=== PATIENT | female | born 1980 | race African-American/Black ===

== ENCOUNTER 2018-08-10 17:21 | Emergency (ER) | payer BC ==
--- NOTE | 2018-08-10 19:38 | ER Document Report ---
HPI - HPI Patient complains to provider of: vaginal itching Time Seen by Provider: 08/10/18 19:22 Pain Level: 5 Context: Patient is a 38-year-old female presents to the emergency department complaining of vaginal itching and discharge for the last week. Patient states she is a diabetic and typically gets yeast infections and has had bacterial vaginosis in the past. Patient states she tried Monistat [id number] with no relief. Patient states the last 2 days her discharge has been green and malodorous. Patient states she has also had unprotected sexual intercourse and would like to be tested for Gonorrhea and chlamydia. Patient's last menstrual period was July 16. Past medical history: Diabetes Medication: Metformin Allergies: Sulfa - REPRODUCTIVE Reproductive: DENIES: : Past Medical History - General Information source: Patient - Social History Smoking Status: Unknown if Ever Smoked Family History: Arthritis, CAD, CVA, DM, Hyperlipidemia, Hypertension, Malignancy, Thyroid Disfunction, Other - renal failure - Past Medical History Cardiac Medical History: Reports: Hx Hypertension Endocrine Medical History: Reports: Hx Diabetes Mellitus Type 2 Past Surgical History: Reports: Hx Section - Immunizations Immunizations up to date: No Hx Diphtheria, Pertussis, Tetanus Vaccination: No Vertical Provider Document - CONSTITUTIONAL Agree With Documented VS: Yes Notes: GENERAL: Alert, interacts well. No acute distress. HEAD: Normocephalic, atraumatic. EYES: Pupils equal, round, and reactive to light. Extraocular movements intact. ENT: Oral mucosa moist, tongue midline. NECK: Full range of motion. Supple. Trachea midline. LUNGS: Clear to auscultation bilaterally, no wheezes, rales, or rhonchi. No respiratory distress. HEART: Regular rate and rhythm. No murmur ABDOMEN: Obese soft, non-tender. Non-distended. Bowel sounds present in all 4 quadrants. No suprapubic abdominal tenderness EXTREMITIES: Moves all 4 extremities spontaneously. No edema, normal radial and dorsalis pedis pulses bilaterally. No cyanosis. BACK: no cervical, thoracic, lumbar midline tenderness. No saddle anesthesia, normal distal neurovascular exam. No CVA tenderness bilaterally NEUROLOGICAL: Alert and oriented x3. Normal speech. cranial nerves II through XII grossly intact PSYCH: Normal affect, normal mood. SKIN: Warm, dry, normal turgor. No rashes or lesions noted. - INFECTION CONTROL TRAVEL OUTSIDE OF THE [place] IN LAST 30 DAYS: No Course - Re-evaluation Re-evalutation: Wet mount revealed bacterial vaginosis and yeast. Patient was prophylactically treated for gonorrhea and chlamydia in the emergency room. No trichomonas noted on wet mount. Patient's pelvic exam revealed white cottage cheese discharge in the cul-de-sac with a slight green tinge. Patient had no cervical motion tenderness no adnexal tenderness bilaterally. Vital signs reviewed, nursing notes reviewed, patient stable for discharge. - Vital Signs Vital signs: Temp Pulse Resp BP Pulse Ox 99.2 F 91 16 140/75 H 98 08/10/18 17:28 08/10/18 17:28 08/10/18 17:28 08/10/18 17:28 08/10/18 17:28 Discharge - Discharge Clinical Impression: Bacterial vaginosis, Yeast infection involving the vagina and surrounding area Condition: Stable Disposition: HOME, SELF-CARE Instructions: Vaginosis, Bacterial ([facility]), Vaginal Yeast Infection ([facility]) Additional Instructions: As we discussed your test came back positive for yeast and bacterial vaginosis. You were prophylactically treated in the emergency room for gonorrhea and chlamydia. You can call medical records to get your results of those tests. We have given you a one-time dose of Diflucan in the emergency room to treat your yeast infection. Unfortunately the metronidazole which is the medicine that treats bacterial vaginosis may give you another yeast infection. I am going to give you a one-time dose of Diflucan to take at the end of your metronidazole course. Please refrain from sexual intercourse or drinking alcohol while taking metronidazole. Please follow-up with your primary care provider in the next 24- 48 hours. Please return to the emergency room should you have any abdominal pain, nausea, vomiting or any other concerning symptoms. Prescriptions: Fluconazole [Diflucan] 150 mg PO ONCE PRN #1 tablet PRN Reason: Metronidazole [Flagyl 500 mg Tablet] 500 mg PO BID #14 tablet Forms: Elevated Blood Pressure
[2018-08-10 20:43] LABS: APPEARANCE,URINE CLEAR; BACTERIA (WET MOUNT) 4+ BACTERIA SEEN; BILIRUBIN,URINE NEGATIVE (NEGATIVE); COLOR,URINE STRAW; GLUCOSE, URINE >=500 mg/dL (NEGATIVE); KETONES,URINE NEGATIVE (NEGATIVE); LEUKOCYTE ESTERASE,URINE MODERATE (NEGATIVE); NITRITE,URINE NEGATIVE (NEGATIVE); PROTEIN,URINE NEGATIVE (NEGATIVE); T.VAGINALIS (WET MOUNT) NO TRICHOMONAS SEEN; URINE SPECIFIC GRAVITY 1.033; UROBILINOGEN,URINE NEGATIVE mg/dL (<2.0); WBCS (WET MOUNT) 4+ WBCS SEEN; YEAST (WET MOUNT) BUDDING YEAST SEEN
[2018-08-10] MEDS ORDERED: AZITHROMYCIN 250 MG TABLET PO ONE (21:14)
[2018-08-10] MEDS ORDERED: LIDOCAINE 1% INJ-PF (10 MG/ML) 30 ML SDV INJ ONE (21:15)
[2018-08-10] MEDS ORDERED: CEFTRIAXONE INJ 250 MG VIAL IM ONE (21:15)
[2018-08-10] MEDS ORDERED: FLUCONAZOLE 100 MG TABLET PO ONE (21:19)
[2018-08-10 21:38] VITALS: BP 139/87
[2018-08-10 22:10] LABS: CHLAM PCR NOT DETECTED (NOT DETECT); GON PCR NOT DETECTED (NOT DETECT)
== END 2018-08-10 21:38 | disposition home or self-care (01) ==
LOC: ER 17:21
DX: B37.3 Candidiasis of vulva and vagina (principal); N76.0 Acute vaginitis; B96.89 Other specified bacterial agents as the cause of diseases classified elsewhere; E11.9 Type 2 diabetes mellitus without complications; I10 Essential (primary) hypertension; Z79.84 Long term (current) use of oral hypoglycemic drugs; Z20.2 Contact with and (suspected) exposure to infections with a predominantly sexual mode of transmission; Z88.2 Allergy status to sulfonamides
CPT/HCPCS: 99283; 96372; 87210; 81025; 81001; 87491; 87591; J3490; J0696

== ENCOUNTER 2019-02-08 09:06 | Emergency (ER) | payer BC ==
--- NOTE | 2019-02-08 10:42 | ER Document Report ---
HPI - HPI Patient complains to provider of: right thigh pain, urgency to void Time Seen by Provider: 02/08/19 10:00 Onset: Other - 3 days Onset/Duration: Sudden Quality of pain: Achy Severity: Severe Pain Level: 5 Context: Patient presents emergency department with complaints of urgency to void and pain on her right thigh. Reports she can barely lift her thigh due to the pain. Reports she took Motrin 8:00 this morning did not help. Denies trauma. Denies other symptoms such as fever vomiting diarrhea. Denies past medical history of injury to the thigh. Denies recent exercise. 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 Patient does admit to getting new shoes which could possibly of irritated her leg. Ports urgency to void for the past 3 days. No other complaints such as vaginal discharge, frequency or pain with void. Reports she is a diabetic but does not take medications at the current time. She has made an appointment with Dr. Isabel for evaluation. Associated Symptoms: None Exacerbated by: Movement Relieved by: Denies Similar symptoms previously: No Recently seen / treated by doctor: No - CONSTITUTIONAL Constitutional: DENIES: Fever, Chills - URINARY Urinary: REPORTS: Dysuria, Urgency, Frequency - REPRODUCTIVE Reproductive: DENIES: : Past Medical History - General Information source: Patient Last Menstrual Period: 01/20/19 - Social History Smoking Status: Current Some Day Smoker Frequency of alcohol use: Occasional Drug Abuse: None Occupation: cook at the [employer] Family History: Arthritis, CAD, CVA, DM, Hyperlipidemia, Hypertension, Malignancy, Thyroid Disfunction, Other - renal failure Patient has suicidal ideation: No Patient has homicidal ideation: No - Past Medical History Cardiac Medical History: Reports: Hx Hypertension Endocrine Medical History: Reports: Hx Diabetes Mellitus Type 2 Renal/ Medical History: Denies: Hx Peritoneal Dialysis Past Surgical History: Reports: Hx Section - Immunizations Immunizations up to date: No Hx Diphtheria, Pertussis, Tetanus Vaccination: No Vertical Provider Document - CONSTITUTIONAL Agree With Documented VS: Yes Exam Limitations: No Limitations General Appearance: WD/WN, No Apparent Distress - nontoxic looking - INFECTION CONTROL TRAVEL OUTSIDE OF THE [place] IN LAST 30 DAYS: No - HEENT HEENT: Atraumatic, Normocephalic - NECK Neck: Normal Inspection, Supple - RESPIRATORY Respiratory: Breath Sounds Normal, No Respiratory Distress - CARDIOVASCULAR Cardiovascular: Regular Rate - GI/ABDOMEN Gastrointestinal: Abdomen Soft, Abdomen Non-Tender - MUSCULOSKELETAL/EXTREMETIES Musculoskeletal/Extremeties: MAEW, FROM, Tender - right thigh laterally ttp, no hip pain no erythema no swelling no warmth no signs of infection no obvious deformity ambulates without problems. - NEURO Level of Consciousness: Awake, Alert, Appropriate Motor/Sensory: No Motor Deficit - DERM Integumentary: Warm, Dry Adult Front & Back Diagram: 1 - reports pain with movement Course - Re-evaluation Re-evalutation: 02/08/19 11:10 UA with large amount of leukocytes will treat for UTI. Patient was instructed on the importance of keeping her appointment with Dr. castano as a primary care provider so he can treat her diabetes and recheck her urine. Verbalized understanding. Dictation of this chart was performed using voice recognition software; therefore, there may be some unintended grammatical errors. - Vital Signs Vital signs: Temp Pulse Resp BP Pulse Ox 98.1 F 93 13 137/74 H 98 02/08/19 09:20 02/08/19 09:20 02/08/19 09:20 02/08/19 09:20 02/08/19 09:20 Discharge - Discharge Clinical Impression: thigh muscle pain UTI (urinary tract infection) Qualifiers: Urinary tract infection type: site unspecified Hematuria presence: without hematuria Qualified Code(s): N39.0 - Urinary tract infection, site not specified Condition: Stable Disposition: HOME, SELF-CARE Instructions: Cephalexin ([facility]), Use of [id number] Ibuprofen ([facility]), Urinary Tract Infection ([facility]) Additional Instructions: *You have been evaluated for urgency voiding, UTI, right thigh muscle pain *Take medication as prescribed *Push fluids *Follow up with dr isabel as scheduled *Return to ED for worsening condition, changes, needs, increased pain fever Prescriptions: Cephalexin Monohydrate [Keflex 250 Mg Capsule] 250 mg PO QID #20 capsule Forms: Elevated Blood Pressure, Return to Work
[2019-02-08 10:54] LABS: APPEARANCE,URINE SLIGHTLY-CLOUDY; BILIRUBIN,URINE NEGATIVE (NEGATIVE); COLOR,URINE STRAW; GLUCOSE, URINE >=500 mg/dL (NEGATIVE); KETONES,URINE NEGATIVE (NEGATIVE); LEUKOCYTE ESTERASE,URINE MODERATE (NEGATIVE); NITRITE,URINE NEGATIVE (NEGATIVE); PROTEIN,URINE NEGATIVE (NEGATIVE); URINE SPECIFIC GRAVITY 1.033; UROBILINOGEN,URINE NEGATIVE mg/dL (<2.0)
[2019-02-08 12:22] VITALS: BP 124/77
== END 2019-02-08 11:28 | disposition home or self-care (01) ==
LOC: ER 09:06
DX: M79.651 Pain in right thigh (principal); N39.0 Urinary tract infection, site not specified; F17.200 Nicotine dependence, unspecified, uncomplicated; I10 Essential (primary) hypertension; E11.9 Type 2 diabetes mellitus without complications
CPT/HCPCS: 81001; 99283

== ENCOUNTER 2020-01-06 12:30 | Emergency (ER) | payer BC ==
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
[2020-01-06 13:23] LABS: APPEARANCE,URINE CLOUDY; BILIRUBIN,URINE NEGATIVE (NEGATIVE); COLOR,URINE YELLOW; GLUCOSE, URINE >=500 mg/dL (NEGATIVE); KETONES,URINE NEGATIVE (NEGATIVE); LEUKOCYTE ESTERASE,URINE MODERATE (NEGATIVE); NITRITE,URINE NEGATIVE (NEGATIVE); PROTEIN,URINE 30 mg/dL (NEGATIVE); URINE SPECIFIC GRAVITY 1.022; UROBILINOGEN,URINE NEGATIVE mg/dL (<2.0)
[2020-01-06 13:50] LABS: BACTERIA (WET MOUNT) 4+ BACTERIA SEEN; EPITHELIALS (WET MOUNT) 3+ EPITHELIALS SEEN; T.VAGINALIS (WET MOUNT) NO TRICHOMONAS SEEN; WBCS (WET MOUNT) FEW WBCS SEEN; YEAST (WET MOUNT) NO YEAST SEEN
[2020-01-06 15:03] VITALS: BP 135/89
[2020-01-06 16:47] LABS: CHLAM PCR NOT DETECTED (NOT DETECT)
== END 2020-01-06 15:04 | disposition home or self-care (01) ==
LOC: ER 12:30
DX: N39.0 Urinary tract infection, site not specified (principal); N89.8 Other specified noninflammatory disorders of vagina; E11.9 Type 2 diabetes mellitus without complications; I10 Essential (primary) hypertension
CPT/HCPCS: 81001; 81025; 87070; 87086; 87088; 87186; 87205; 87210; 87491; 87591; 99283

== ENCOUNTER 2020-06-11 18:09 | Emergency (ER) | payer BC ==
[2020-06-11] MEDS ORDERED: ACETAMINOPHEN 325 MG TABLET PO ONE (19:24)
--- NOTE | 2020-06-11 19:24 | ER Document Report ---
ED Medical Screen (RME) - General Chief Complaint: Pain All Over Stated Complaint: BODY ACHES,SHAKY,NAUSEA Time Seen by Provider: 06/11/20 19:22 Mode of Arrival: Ambulatory Information source: Patient Notes: HPI; 39-year-old female presents to the emergency room complaining of general body aches, fever of 100, and a decreased appetite for the past 3 days. She denies any nausea, vomiting, diarrhea, no shortness of breath, no difficulty breathing. No recent travel. No COVID-19 exposure. PE: Alert and oriented x3. Lungs diminished in the bases, no rales no rhonchi. Heart: Tachycardic without murmurs, rubs, gallops. I have greeted and performed a rapid initial assessment of this patient. A comprehensive ED assessment and evaluation of the patient, analysis of test results and completion of the medical decision making process will be conducted by additional ED providers. I have specifically instructed the patient or family members with the patient to immediately return to any nursing staff should anything change in the patient's condition or with their chief complaint. TRAVEL OUTSIDE OF THE [place] IN LAST 30 DAYS: No - Related Data Allergies/Adverse Reactions: Sulfa (Sulfonamide Antibiotics) Allergy (Verified 02/08/19 09:09) Past Medical History - Past Medical History Cardiac Medical History: Reports: Hx Hypertension Endocrine Medical History: Reports: Hx Diabetes Mellitus Type 2 Renal/ Medical History: Denies: Hx Peritoneal Dialysis Past Surgical History: Reports: Hx Section - Immunizations Immunizations up to date: No Hx Diphtheria, Pertussis, Tetanus Vaccination: No Physical Exam - Vital signs Vitals: Temp Pulse Resp BP Pulse Ox 100.0 F 127 H 18 129/77 H 99 06/11/20 18:32 06/11/20 18:32 06/11/20 18:32 06/11/20 18:32 06/11/20 18:32 Course - Vital Signs Vital signs: Temp Pulse Resp BP Pulse Ox 100.0 F 127 H 18 129/77 H 99 06/11/20 18:32 06/11/20 18:32 06/11/20 18:32 06/11/20 18:32 06/11/20 18:32
[2020-06-11] MEDS ORDERED: RINGERS SOLUTION,LACTATED 1,000 ML IV ONE (19:25)
[2020-06-11] MEDS ORDERED: ONDANSETRON HCL INJ/PF 4 MG/2 ML SDV IV ONE (19:25)
[2020-06-11 20:21] LABS: ABSOLUTE LYMPHOCYTES (AUTO) 1.1 10^3/uL (0.5-4.7); ABSOLUTE MONOCYTES (AUTO) 0.9 10^3/uL (0.1-1.4); ABSOLUTE NEUT (AUTO) 7.4 10^3/uL (1.7-8.2); BASOPHILS % (AUTO) 0.5 % (0-2); HEMATOCRIT 41.4 % (36.0-47.0); HEMOGLOBIN 14.6 g/dL (12.0-15.5); LYMPHOCYTES % (AUTO) 11.8 % (13-45); MEAN CORPUSCULAR HEMOGLOBIN 31.6 pg (27.0-33.4); MEAN CORPUSCULAR HGB CONC 35.3 g/dL (32.0-36.0); MEAN CORPUSCULAR VOLUME 90 fl (80-97); MONOCYTES % (AUTO) 9.1 % (3-13); PLATELET COUNT 278 10^3/uL (150-450); RED BLOOD COUNT 4.62 10^6/uL (3.72-5.28); RED CELL DISTRIBUTION WIDTH 12.6 % (11.5-14.0); SEGMENTED NEUTROPHILS % (AUTO) 78.6 % (42-78); TOTAL CELLS COUNTED % (AUTO) 100 %; WHITE BLOOD COUNT 9.4 10^3/uL (4.0-10.5)
[2020-06-11 20:28] LABS: APPEARANCE,URINE SLIGHTLY-CLOUDY; BILIRUBIN,URINE NEGATIVE (NEGATIVE); COLOR,URINE AMBER; GLUCOSE, URINE >=500 mg/dL (NEGATIVE); KETONES,URINE 80 mg/dL (NEGATIVE); LEUKOCYTE ESTERASE,URINE MODERATE (NEGATIVE); NITRITE,URINE NEGATIVE (NEGATIVE); PROTEIN,URINE 100 mg/dL (NEGATIVE); URINE SPECIFIC GRAVITY 1.025
[2020-06-11 20:34] LABS: A TYPE INFLUENZA AG NEGATIVE (NEGATIVE); B INFLUENZA AG NEGATIVE (NEGATIVE)
[2020-06-11 20:36] LABS: ALBUMIN 3.8 g/dL (3.5-5.0); ALKALINE PHOSPHATASE 90 U/L (38-126); ANION GAP 15 (5-19); ASPARTATE AMINO TRANSFERASE 33 U/L (14-36); BILIRUBIN,DIRECT 0.4 mg/dL (0.0-0.4); BILIRUBIN,TOTAL 0.7 mg/dL (0.2-1.3); BLOOD UREA NITROGEN 13 mg/dL (7-20); CARBON DIOXIDE 19 mmol/L (22-30); CHLORIDE 98 mmol/L (98-107); GLUCOSE 244 mg/dL (75-110); POTASSIUM 4.9 mmol/L (3.6-5.0); TOTAL PROTEIN 6.8 g/dL (6.3-8.2)
--- NOTE | 2020-06-11 20:54 | RADIOLOGY REPORT (SQ) ---
EXAM DESCRIPTION: XR CHEST 1 VIEW COMPLETED DATE/TME: 06/11/2020 19:22 CLINICAL HISTORY: 39 years Female fever COMPARISON: None. FINDINGS: The cardiomediastinal silhouette appears unremarkable. No consolidating infiltrates or pleural effusions. No pneumothorax. IMPRESSION: No acute abnormality is identified.
[2020-06-11] MEDS ORDERED: CEFTRIAXONE 1 GM/D5W RTU 1 GM/50 ML RTUPB IV ONE (21:09)
--- NOTE | 2020-06-11 21:16 | ER Document Report ---
ED General - General Chief Complaint: Flu Symptoms Stated Complaint: BODY ACHES,SHAKY,NAUSEA Time Seen by Provider: 06/11/20 19:22 Mode of Arrival: Ambulatory Notes: Patient is a 39-year-old female who comes emergency department for chief complaint of 3 days of feeling rundown, generalized body aches, chills, low-grade fever, and decreased appetite. She denies abdominal pain, flank pain, cough, congestion, sore throat, nausea, vomiting, diarrhea. She denies any COVID-19 exposure or recent travel. Past medical history of type 2 diabetes, she is supposed be on metformin but does not take it because of how it makes her feel, denies medical history otherwise, denies recreational drugs. TRAVEL OUTSIDE OF THE [place] IN LAST 30 DAYS: No - Related Data Allergies/Adverse Reactions: Sulfa (Sulfonamide Antibiotics) Allergy (Verified 06/11/20 19:56) Past Medical History - General Information source: Patient - Social History Smoking Status: Current Every Day Smoker Frequency of alcohol use: None Drug Abuse: None Lives with: Family Family History: Arthritis, CAD, CVA, DM, Hyperlipidemia, Hypertension, Malignancy, Thyroid Disfunction, Other - renal failure - Past Medical History Cardiac Medical History: Reports: Hx Hypertension Endocrine Medical History: Reports: Hx Diabetes Mellitus Type 2 Renal/ Medical History: Denies: Hx Peritoneal Dialysis Past Surgical History: Reports: Hx Section - Immunizations Immunizations up to date: No Hx Diphtheria, Pertussis, Tetanus Vaccination: No Review of Systems - Review of Systems Constitutional: See HPI EENT: No symptoms reported Cardiovascular: No symptoms reported Respiratory: No symptoms reported Gastrointestinal: No symptoms reported Genitourinary: See HPI Female Genitourinary: No symptoms reported Musculoskeletal: No symptoms reported Skin: No symptoms reported Hematologic/Lymphatic: No symptoms reported Neurological/Psychological: No symptoms reported Physical Exam - Vital signs Vitals: Temp Pulse Resp BP Pulse Ox 100.0 F 127 H 18 129/77 H 99 06/11/20 18:32 06/11/20 18:32 06/11/20 18:32 06/11/20 18:32 06/11/20 18:32 - Notes Notes: GENERAL: Alert, interacts well. No acute distress. HEAD: Normocephalic, atraumatic. EYES: Pupils equal, round, and reactive to light. Extraocular movements intact. ENT: Oral mucosa moist, tongue midline. Oropharynx unremarkable. Airway patent. NECK: Full range of motion. Supple. Trachea midline. No lymphadenopathy. LUNGS: Clear to auscultation bilaterally, no wheezes, rales, or rhonchi. No respiratory distress. Non-tender chest wall. HEART: Regular rate and rhythm. No murmur ABDOMEN: Soft, non-tender. Non-distended. Bowel sounds present in all 4 quadrants. GENITOURINARY: Deferred EXTREMITIES: Moves all 4 extremities spontaneously. No edema, normal radial and dorsalis pedis pulses bilaterally. No cyanosis. BACK: no cervical, thoracic, lumbar midline tenderness. No saddle anesthesia, normal distal neurovascular exam. Moves all extremities in full range of motion. NEUROLOGICAL: Alert and oriented x3. Normal speech. Cranial nerves II through XII grossly intact. Strength 5/5 in all extremities. PSYCH: Normal affect, normal mood. SKIN: Warm, dry, normal turgor. No rashes or lesions noted. Course - Re-evaluation Re-evalutation: Patient with initial borderline temperature at 100 F, tachycardia, however on my exam she is alert, well-appearing, not tachycardic. Repeat vitals are unremarkable. Abdomen is soft and benign, no CVA tenderness, no signs of distress. No shortness of breath, chest pain, nuchal rigidity, or headache. CBC unremarkable, chemistry nonspecific, urinalysis shows infection. Blood and urine cultures are pending. Influenza negative, chest x-ray unremarkable. Overall presentation is most consistent with urinary tract infection, suspected pyelonephritis. However patient does not present as if she has ureterolithiasis, she has no flank pain, no history of stones, requires no pain management. She has no vomiting. Low suspicion of sepsis as well based on her vital signs and work-up. I discussed with patient. Patient will be treated with antibiotics, discussed follow-up and return precautions. Patient states appreciation and agreement. Stable and well-appearing at time of discharge. - Vital Signs Vital signs: Temp Pulse Resp BP Pulse Ox 98.4 F 89 18 129/74 H 100 06/11/20 23:23 06/11/20 23:23 06/11/20 23:23 06/11/20 23:23 06/11/20 23:23 - Laboratory Result Diagrams: 06/11/20 20:04 06/11/20 20:04 Laboratory results interpreted by me: 06/11/20 06/11/20 06/11/20 20:04 20:04 20:04 Lymph % (Auto) 11.8 L Seg Neutrophils % 78.6 H Sodium 132.3 L Carbon Dioxide 19 L Glucose 244 H Urine Protein 100 H Urine Glucose (UA) >=500 H Urine Ketones 80 H Urine Blood MODERATE H Urine Urobilinogen 4.0 H Ur Leukocyte Esterase MODERATE H Discharge - Discharge Clinical Impression: Body aches Fever Qualifiers: Fever type: unspecified Qualified Code(s): R50.9 - Fever, unspecified Urinary tract infection Qualifiers: Urinary tract infection type: site unspecified Hematuria presence: without hematuria Qualified Code(s): N39.0 - Urinary tract infection, site not specified Condition: Stable Disposition: HOME, SELF-CARE Additional Instructions: Your evaluation is consistent with a urinary tract infection, probably a developing kidney infection. Take the antibiotics as prescribed to completion. Drink plenty fluids and rest. Take Tylenol and ibuprofen for chills/body aches. Symptoms should gradually resolve. We do have urine cultures and blood cultures growing, you will be contacted for any concerning results. Follow-up with primary care. Return for any concerning symptoms including vomiting, severe abdominal or back pain, spiking fevers, difficulty breathing, or any other concerning or worsening symptoms. Prescriptions: Fluconazole [Diflucan] 150 mg PO ONCE PRN #3 tablet PRN Reason: Cephalexin Monohydrate [Keflex 500 mg Capsule] 500 mg PO QID 10 Days #40 capsule Forms: Return to Work
[2020-06-11 23:29] VITALS: BP 129/74
== END 2020-06-11 23:23 | disposition home or self-care (01) ==
LOC: ER 18:09
DX: N39.0 Urinary tract infection, site not specified (principal); M79.10 Myalgia, unspecified site; R50.9 Fever, unspecified; R11.0 Nausea; I10 Essential (primary) hypertension; E11.9 Type 2 diabetes mellitus without complications; Z88.2 Allergy status to sulfonamides
CPT/HCPCS: 99284; 96365; 36415; 87040; 87086; 84703; 85025; 87088; 80053; 81001; 87186; 87804; 71045; J7120; J0696

== ENCOUNTER 2020-06-13 07:33 | Emergency (ER) | payer BC ==
[2020-06-13 08:20] VITALS: BP 123/75
[2020-06-13] MEDS ORDERED: TETRACAINE HCL 0.5% OPH SOLN 4 ML OU ONE (10:24)
--- NOTE | 2020-06-13 10:39 | ER Document Report ---
HPI - HPI Patient complains to provider of: right eye problem Time Seen by Provider: 06/13/20 10:24 Pain Level: 5 Notes: 39 year old female to the ED with C/ right eye swelling, itching, pain, and discharge that began two days ago. Initially the eye was itchy with mild discharge. Yesterday, it began to swell and today, it was matted shut and the eyelids are red and painful. States that she is diabetic. Denies eye pain with movement of the eye. Denies fevers, chills, headache, trauma, sensation of FB in the eye. She is diabetic. Currently on Keflex for UTI. - ROS Systems Reviewed and Negative: Yes All other systems reviewed and negative - CONSTITUTIONAL Constitutional: REPORTS: Fever, Chills - EENT EENT: REPORTS: Eye problems - see hpi - NEURO Neurology: DENIES: Headache, Weakness, Vision blurred, Dizzinesss / Vertigo - CARDIOVASCULAR Cardiovascular: DENIES: Chest pain - RESPIRATORY Respiratory: DENIES: Trouble Breathing, Coughing - GASTROINTESTINAL Gastrointestinal: DENIES: Abdominal Pain, Nausea, Patient vomiting, Diarrhea - MUSCULOSKELETAL Musculoskeletal: DENIES: Extremity pain, Back Pain - DERM Skin Color: Other - see HPI Past Medical History - General Information source: Patient - Social History Smoking Status: Current Some Day Smoker Chew tobacco use (# tins/day): No Frequency of alcohol use: Occasional Drug Abuse: None Family History: Arthritis, CAD, CVA, DM, Hyperlipidemia, Hypertension, Malignancy, Thyroid Disfunction, Other - renal failure Patient has homicidal ideation: No - Past Medical History Cardiac Medical History: Reports: Hx Hypertension Endocrine Medical History: Reports: Hx Diabetes Mellitus Type 2 Renal/ Medical History: Denies: Hx Peritoneal Dialysis Past Surgical History: Reports: Hx Section - Immunizations Immunizations up to date: No Hx Diphtheria, Pertussis, Tetanus Vaccination: No Vertical Provider Document - CONSTITUTIONAL Agree With Documented VS: Yes General Appearance: WD/WN, No Apparent Distress - INFECTION CONTROL TRAVEL OUTSIDE OF THE [place] IN LAST 30 DAYS: No - HEENT HEENT: Atraumatic, Normal ENT Exam, PERRLA Notes: the right upper and lower eyelids are edematous, erythematous and crusted with yellow discharge. no vesicles to the eyelids, no lee's sign the conjunctiva is erythematous. wood's lamp exam reveals no FB, no rust ring, no corneal abrasion, no ulcer, no dendrites. fundoscoopicc exam is normal. RAHUL and there is no pain with movement of the eyes. - NECK Neck: Normal Inspection, Supple - RESPIRATORY Respiratory: Breath Sounds Normal, No Respiratory Distress - CARDIOVASCULAR Cardiovascular: Regular Rate, Regular Rhythm - GI/ABDOMEN Gastrointestinal: Abdomen Soft, Abdomen Non-Tender, No Organomegaly - MUSCULOSKELETAL/EXTREMETIES Musculoskeletal/Extremeties: DAVID FROM - NEURO Level of Consciousness: Awake, Alert, Appropriate Motor/Sensory: No Motor Deficit - DERM Integumentary: Warm, Dry Course - Re-evaluation Re-evalutation: Impression: Conjunctivitis with likely early periorbital cellulitis. will have patieent stop her keflex. start on augmentin and clinda. give erythromyycin ointment. return tomorrow for recheck of the eye. she agrees with the plan. noted visual acuity - Vital Signs Vital signs: Temp Pulse Resp BP Pulse Ox 98.2 F 84 17 123/75 99 06/13/20 08:37 06/13/20 08:19 06/13/20 08:19 06/13/20 08:19 06/13/20 08:19 Discharge - Discharge Clinical Impression: Periorbital cellulitis of right eye Conjunctivitis Qualifiers: Conjunctivitis type: acute Acute conjunctivitis type: unspecified Laterality: right Qualified Code(s): H10.31 - Unspecified acute conjunctivitis, right eye Condition: Stable Disposition: HOME, SELF-CARE Instructions: Conjunctivitis (OM) Additional Instructions: Complete all antibiotics without fail. Return tomorrow for wound check. Follow-up with eye doctor by Wednesday. Return sooner if your symptoms get worse. Use Michael [employer] Michael's no tears to help wash the eye. Prescriptions: Amoxicillin/Potassium Clav [Augmentin 875-125 Tablet] 1 tab PO BID #20 tablet Clindamycin HCl 300 mg PO TID #30 capsule Fluconazole [Diflucan] 150 mg PO ONCE PRN #1 tablet PRN Reason: Erythromycin Base [Erythromycin Oph 1 Gm Oint Ud] 1 applic OU TID #3.5 g Referrals: JENNIFER TERRY MD [ACTIVE STAFF] - Follow up in 3-5 days (for eye doctor follow up)
== END 2020-06-13 10:42 | disposition home or self-care (01) ==
LOC: ER 07:33
DX: H10.31 Unspecified acute conjunctivitis, right eye (principal); L03.213 Periorbital cellulitis; N39.0 Urinary tract infection, site not specified; R50.9 Fever, unspecified; E11.9 Type 2 diabetes mellitus without complications; I10 Essential (primary) hypertension; F17.200 Nicotine dependence, unspecified, uncomplicated
CPT/HCPCS: 99283; J3490

== ENCOUNTER 2020-06-14 10:43 | Emergency (ER) | payer BC ==
[2020-06-14 10:49] VITALS: BP 126/81
--- NOTE | 2020-06-14 11:04 | ER Document Report ---
HPI - HPI Patient complains to provider of: Recheck Time Seen by Provider: 06/14/20 10:53 Pain Level: 3 Notes: 39-year-old female to the emergency department for recheck of right eye periorbital cellulitis and conjunctivitis. She was seen yesterday in the emergency department by myself. She is started on Augmentin, clindamycin, erythromycin ophthalmology ointment. She states that she feels a lot better today. She believes that the upper eyelid has decreased in size and redness. She states the eye feels a lot better itchy and irritated today as well. Denies any fevers or chills or any other new complaints today - ROS Systems Reviewed and Negative: Yes All other systems reviewed and negative - CONSTITUTIONAL Constitutional: DENIES: Fever, Chills - EENT EENT: REPORTS: Eye problems - See HPI. DENIES: Sore Throat, Ear Pain, Congestion - NEURO Neurology: DENIES: Headache, Weakness, Vision blurred, Dizzinesss / Vertigo - CARDIOVASCULAR Cardiovascular: DENIES: Chest pain - RESPIRATORY Respiratory: DENIES: Trouble Breathing, Coughing - GASTROINTESTINAL Gastrointestinal: DENIES: Abdominal Pain, Nausea, Patient vomiting, Diarrhea - REPRODUCTIVE LMP: 06/08/20 - MUSCULOSKELETAL Musculoskeletal: DENIES: Extremity pain, Back Pain, Neck Pain - DERM Skin Color: Other - See HPI Past Medical History - General Information source: Patient - Social History Smoking Status: Former Smoker Frequency of alcohol use: None Drug Abuse: None Family History: Arthritis, CAD, CVA, DM, Hyperlipidemia, Hypertension, Malignancy, Thyroid Disfunction, Other - renal failure Patient has homicidal ideation: No - Past Medical History Cardiac Medical History: Reports: Hx Hypertension Endocrine Medical History: Reports: Hx Diabetes Mellitus Type 2 Renal/ Medical History: Denies: Hx Peritoneal Dialysis Past Surgical History: Reports: Hx Section - Immunizations Immunizations up to date: No Hx Diphtheria, Pertussis, Tetanus Vaccination: No Vertical Provider Document - CONSTITUTIONAL Agree With Documented VS: Yes Exam Limitations: No Limitations General Appearance: WD/WN, No Apparent Distress - INFECTION CONTROL TRAVEL OUTSIDE OF THE [place] IN LAST 30 DAYS: No - HEENT HEENT: Atraumatic, Normocephalic, PERRLA Notes: There is interval improvement of the eye today. The upper eyelid is significantly less edematous and erythematous. It appears to be less tender to palpation as well. The eye does not have as much crusted discharge to it today either. There is no streaking lymphangitis and patient states that she is feeling better. - NECK Neck: Normal Inspection, Supple - RESPIRATORY Respiratory: Breath Sounds Normal, No Respiratory Distress. negative: Rales, Rhonchi, Wheezing - CARDIOVASCULAR Cardiovascular: Regular Rate, Regular Rhythm, No Murmur - GI/ABDOMEN Gastrointestinal: Abdomen Soft, Abdomen Non-Tender - BACK Back: Normal Inspection - MUSCULOSKELETAL/EXTREMETIES Musculoskeletal/Extremeties: GREGORIO HERNANDEZ - NEURO Level of Consciousness: Awake, Alert, Appropriate - DERM Integumentary: Warm, Dry Course - Re-evaluation Re-evalutation: Impression: Periorbital cellulitis with conjunctivitis. Patient is improving today. I have encouraged her to complete her antibiotics without fail. She is to return if she gets worse at all. Patient agrees with the plan. I have also asked her to call the eye doctor who I gave her yesterday. She states she will call today. - Vital Signs Vital signs: Temp Pulse Resp BP Pulse Ox 98.2 F 91 16 126/81 H 99 06/14/20 10:52 06/14/20 10:49 06/14/20 10:49 06/14/20 10:49 06/14/20 10:49 Discharge - Discharge Clinical Impression: Periorbital cellulitis of right eye, Encounter for wound re-check Conjunctivitis Qualifiers: Conjunctivitis type: acute Acute conjunctivitis type: unspecified Laterality: right Qualified Code(s): H10.31 - Unspecified acute conjunctivitis, right eye Condition: Stable Disposition: HOME, SELF-CARE Instructions: Conjunctivitis (OM) Additional Instructions: You came to the emergency department today for a recheck. Periorbital cellulitis and conjunctivitis. The eye is starting to look better today. Please complete all your antibiotics until they are gone. Return if worsening swelling pain or fever. Follow-up with eye doctor as requested. Referrals: JENNIFER TERRY MD [ACTIVE STAFF] - Follow up in 3-5 days
== END 2020-06-14 11:09 | disposition home or self-care (01) ==
LOC: ER 10:43
DX: L03.213 Periorbital cellulitis (principal); H10.31 Unspecified acute conjunctivitis, right eye; I10 Essential (primary) hypertension; E11.9 Type 2 diabetes mellitus without complications; Z87.891 Personal history of nicotine dependence
CPT/HCPCS: 99281